=== PATIENT | male | born 1985 ===

== ENCOUNTER 2022-03-31 09:49 | Emergency (ER) | payer BC, SELFPAY ==
[2022-03-31] VITALS (38 sets, daily range): BP systolic 115–141; BP diastolic 70–94; PULSE 71–123; RESP 9–31; TEMP 36.6–36.8; O2SAT 91–100
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
--- NOTE | 2022-03-31 10:15 | ECG_ITS ---
Measurements Intervals [place] Rate: 93 P: 60 HI: 162 QRS: 52 QRSD: 98 T: 17 QT: 354 QTc: 442 Interpretive Statements SINUS RHYTHM POSSIBLE RIGHT ATRIAL ENLARGEMENT [0.25mV P-WAVE] POSSIBLE LEFT ATRIAL ENLARGEMENT [-0.1mV P-WAVE IN V1/V2] INCOMPLETE RIGHT BUNDLE BRANCH BLOCK NO PREVIOUS ECG AVAILABLE FOR COMPARISON Electronically Signed On 03-31-2022 20:30:11 CDT by Shelbie Tesfaye M.D.
[2022-03-31 10:21] LABS: Glucose Point of Care 118 mg/dl (65-105)
--- NOTE | 2022-03-31 10:25 | PC.NURSE ---
pt admits to injecting something IV this AM. Does not know what he took. Denies suicidal ideation, states it was just to get a high .
--- NOTE | 2022-03-31 10:43 | PC.NURSE ---
Parents updated. Lab at bedside attempting to obtain bloodwork. Will send to CT when labs obtained.
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
[2022-03-31 11:06] LABS: Basophils Absolute Auto 0.04 K/mm3 (0.00-0.10); Basophils Percent Auto 0.3 % (0.0-1.0); Eosinophils Absolute Auto 0.02 K/mm3 (0.02-0.50); Eosinophils Percent Auto 0.2 % (1.0-6.0); Hematocrit 44.1 % (40.0-54.0); Hemoglobin 15.5 g/dL (14.0-18.0); Immature Granulocyte Absolute 0.07 K/mm3 (0.00-0.00); Immature Granulocyte Percent A 0.6 % (0.0-0.0); Immature Platelet Fraction Pct 2.1 % (1.0-7.0); Lymphocytes Absolute Auto 1.68 K/mm3 (1.10-4.50); Lymphocytes Percent Auto 14.4 % (18.0-42.0); Mean Corpuscular HGB Conc 35.1 g/dL (32.0-36.0); Mean Corpuscular Hemoglobin 30.6 pg (27.0-31.0); Mean Corpuscular Volume 87.2 fL (78.0-102.0); Mean Platelet Volume 10.2 fl (8.7-11.0); Monocytes Absolute Auto 0.93 K/mm3 (0.10-0.90); Neutrophils Absolute Auto 8.9 K/mm3 (1.7-7.2); Neutrophils Percent Auto 76.5 % (50.0-70.0); Platelet Count Result 471 K/mm3 (150-420); Red Blood Count 5.06 M/mm3 (4.70-6.10); Red Cell Distribution Width 12.9 % (11.6-14.4); White Blood Count 11.7 K/mm3 (4.8-10.8)
[2022-03-31] MEDS: HALOPERIDOL LACTATE 5 MG/ML VIAL IM (11:14)
[2022-03-31 11:21] LABS: INR 1.1; Prothrombin Time 11.7 Seconds (9.50-12.10)
[2022-03-31 11:23] LABS: Lactic Acid Reflex 1.1 mmol/L (0.4-2.0)
[2022-03-31 11:28] LABS: Alanine Aminotransferase 41 U/L (16-63); Albumin Level 3.8 g/dL (3.4-5.0); Alkaline Phosphatase 116 U/L (46-116); Anion Gap 10 mmol/L (8-16); Aspartate Amino Transferase 22 U/L (15-37); Bilirubin,Total 0.5 mg/dL (0.00-1.00); Blood Urea Nitrogen 15 mg/dL (7-18); Carbon Dioxide 28 mmol/L (21-32); Chloride 99 mmol/L (98-108); Estimated Glomerular Filt Rate > 60; Glucose 117 mg/dL (70-99); Osmolality Calculated 285 mOsm/kg (285-295); Potassium 3.1 mmol/L (3.5-5.1); Sodium 137 mmol/L (136-145); Thyroid Stimulating Hormone 0.91 uIU/mL (0.36-3.74); Total Protein 8.5 g/dL (6.4-8.2)
[2022-03-31 11:29] LABS: Acetaminophen < 2 ug/mL (10-30); Ethanol < 3 mg/dL (0-6)
--- NOTE | 2022-03-31 11:48 | PC.NURSE ---
pt remains disoriented but calm. Attempts to reorient to hospital and nurse. Will Attempt CT scan
--- NOTE | 2022-03-31 12:06 | PC.NURSE ---
Parents at bedside. Continue to reorient patient to hospital. VSS
--- NOTE | 2022-03-31 12:28 | PC.NURSE ---
Attempted to assist patient to urinate. Pt masturbated, unable to obtain urine at this time. MD aware
[2022-03-31] MEDS: OLANZapine 10 MG INJ VIAL 5 MG IM (13:11)
[2022-03-31] MEDS: POTASSIUM CHLORIDE 20 MEQ TABLET PO (13:12)
--- NOTE | 2022-03-31 13:36 | PC.NURSE ---
Urine obtained and walked to lab. Pt eating sandwich and crackers, drinking water. Still disoriented to place but cooperative
[2022-03-31 13:39] LABS: Add Urine Microscopic? YES; Appearance Urine Clear (Clear); Bilirubin Urine 1+ (Negative); Blood Urine Negative (Negative); Color Urine Dark Yellow (Yellow); Glucose Urine UA Negative (Negative); Ketones Urine Trace (Negative); Leukocyte Esterase Ur Negative LEU/UL (Negative); Nitrate Urine Negative (Negative); Protein Urine 1+ (Negative)
[2022-03-31 13:44] LABS: Bacteria Urine 1+ /hpf; Mucus Urine Moderate /lpf; RBC Urine None seen /hpf (0-2); WBC Urine None seen /hpf (0-3)
[2022-03-31 13:52] LABS: Amphetamine Screen Urine Negative (Negative); Barbiturate Screen Urine Negative (Negative); Benzodiazepines Screen Urine Negative (Negative); Cannabinoid Screen Urine Positive (Negative); Cocaine Screen Urine Negative (Negative); Methadone Screen Urine Negative (Negative); Opiate Screen Urine Negative (Negative); Phencyclidine Screen Urine Negative (Negative)
--- NOTE | 2022-03-31 14:09 | PC.NURSE ---
Pt sleeping, breathing unlabored. Psych teachers assistant contacted per MD to assess patient.
--- NOTE | 2022-03-31 14:13 | PC.NURSE ---
Parents updated. Left phone number to contact [phone]
--- NOTE | 2022-03-31 14:26 | PC.NURSE ---
Called parents to alert psych is in hospital. They are headed back to hospital at this time.
--- NOTE | 2022-03-31 15:11 | PC.NURSE ---
Karmen from [facility] spoke to family and patient. All in agreement to discharge, get patient to his appointment at [facility] at 4 PM today.
== END 2022-03-31 15:14 | disposition home or self-care (01) ==
PROVIDERS: Emergency Provider Internal Medicine Critical Care Medicine; PCP Physician Assistant
DX: F11.10 Opioid abuse, uncomplicated (principal); F19.239 Other psychoactive substance dependence with withdrawal, unspecified; F29 Unspecified psychosis not due to a substance or known physiological condition
CPT/HCPCS: 36415; 70450; 80053; 80307; 81001; 82948; 83605; 84443; 85025; 85055; 85610; 93005; 96372; 99284; A9270; J1630

== ENCOUNTER 2024-10-01 13:34 | Emergency (ER) | payer BC, SELFPAY ==
[2024-10-01] VITALS (22 sets, daily range): BP systolic 91–114; BP diastolic 53–78; PULSE 55–82; RESP 9–20; TEMP 36.3–36.7; O2SAT 96–100
--- NOTE | 2024-10-01 13:56 | ECG_ITS ---
Test Date: 2024-10-01 14:10:47 Measurements Intervals [place] Rate: 59 P: 55 NV: 182 QRS: 76 QRSD: 98 T: 48 QT: 398 QTc: 397 Interpretive Statements SINUS BRADYCARDIA POSSIBLE RIGHT VENTRICULAR CONDUCTION DELAY [RSR (QR) IN V1/V2] No previous ECG available for comparison Electronically Signed On 10-01-2024 14:45:46 UPPER TRIMMER by Madeline Keith M.D.
[2024-10-01 14:19] LABS: Basophils Absolute Auto 0.05 K/mm3 (0.00-0.10); Basophils Percent Auto 0.7 % (0.0-1.0); Eosinophils Absolute Auto 0.11 K/mm3 (0.02-0.50); Eosinophils Percent Auto 1.4 % (1.0-6.0); Hematocrit 40.2 % (40.0-54.0); Hemoglobin 13.7 g/dL (14.0-18.0); Immature Granulocyte Absolute 0.02 K/mm3 (0.00-0.00); Immature Granulocyte Percent A 0.3 % (0.0-0.0); Lymphocytes Absolute Auto 1.85 K/mm3 (1.10-4.50); Lymphocytes Percent Auto 24.1 % (18.0-42.0); Mean Corpuscular HGB Conc 34.1 g/dL (32-36); Mean Corpuscular Hemoglobin 30.6 pg (27.0-31.0); Mean Corpuscular Volume 89.7 fL (78.0-102.0); Monocytes Absolute Auto 0.57 K/mm3 (0.10-0.90); Monocytes Percent Auto 7.4 % (2.0-11.0); Neutrophils Absolute Auto 5.08 K/mm3 (1.70-7.20); Neutrophils Percent Auto 66.1 % (50.0-70.0); Platelet Count Result 249 K/mm3 (150-420); Red Blood Count 4.48 M/mm3 (4.70-6.10); Red Cell Distribution Width 13.8 % (11.6-14.4); White Blood Count 7.7 K/mm3 (4.8-10.8)
[2024-10-01 14:36] LABS: Alanine Aminotransferase 75 U/L (16-63); Albumin Level 3.9 g/dL (3.4-5.0); Alkaline Phosphatase 96 U/L (46-116); Anion Gap 9 mmol/L (4-12); Aspartate Amino Transferase 34 U/L (15-37); Bilirubin,Total 0.4 mg/dL (0.00-1.00); Blood Urea Nitrogen 8 mg/dL (7-18); Carbon Dioxide 28 mmol/L (21-32); Chloride 104 mmol/L (98-108); Estimated CRCL calculation 112 ml/min; Estimated Glomerular Filt Rate > 60; Glucose 105 mg/dL (70-99); Osmolality Calculated 290 mOsm/kg (285-295); Potassium 3.9 mmol/L (3.5-5.1); Sodium 141 mmol/L (136-145); Total Protein 7.8 g/dL (6.4-8.2)
[2024-10-01 15:45] LABS: Add Urine Microscopic? NO; Appearance Urine Clear (Clear); Bilirubin Urine Negative (Negative); Blood Urine Negative (Negative); Color Urine Yellow (Yellow); Glucose Urine UA Negative (Negative); Ketones Urine Negative (Negative); Leukocyte Esterase Ur Negative (Negative); Nitrate Urine Negative (Negative); Protein Urine Negative (Negative); Specific Grav Ur 1.025 (1.010-1.020); Urobilinogen Urine 0.2 mg/dL (0.2-1.0)
[2024-10-01 15:59] LABS: Amphetamine Screen Urine Negative (Negative); Barbiturate Screen Urine Negative (Negative); Benzodiazepines Screen Urine Negative (Negative); Cannabinoid Screen Urine Positive (Negative); Cocaine Screen Urine Negative (Negative); Methadone Screen Urine Negative (Negative); Opiate Screen Urine Positive (Negative); Phencyclidine Screen Urine Negative (Negative)
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
[2024-10-01] MEDS: NALOXONE HCL INJ 2 MG/2 ML AMP IV PUSH (16:59)
== END 2024-10-01 17:25 | disposition home or self-care (01) ==
PROVIDERS: Emergency Provider Emergency Medicine
DX: T40.2X1A Poisoning by other opioids, accidental (unintentional), initial encounter (principal); T50.7X1A Poisoning by analeptics and opioid receptor antagonists, accidental (unintentional), initial encounter; R40.4 Transient alteration of awareness; F11.10 Opioid abuse, uncomplicated
CPT/HCPCS: 36415; 80053; 80307; 81003; 85025; 93005; 96374; 99284; J2310